=== PATIENT | female | born 1965 | race Caucasian/White ===

== ENCOUNTER 2019-12-20 15:04 | Emergency (ER) | payer OTHER ==
[2019-12-20] MEDS ORDERED: Lorazepam 2 MG/ML VIAL ONE (15:27)
[2019-12-20 15:57] LABS: #Basophils 0.1 thou/uL (0.0-0.2); #Eosinphils 0.3 thou/uL (0.0-0.7); #Lymphocytes 2.7 thou/uL (1.20-3.40); #Monocytes 0.8 thou/uL (0.11-0.59); #Neutrophils 11.1 thou/uL (1.40-6.50); %Basophils 0.9 % (0.0-1.0); %Eosinophils 2.1 % (0.0-10.0); %Lymphocytes 18.2 % (21.0-51.0); %Monocytes 5.3 % (0.0-10.0); %Neutrophils 73.5 % (42.0-75.0); Hemoglobin 15.6 g/dL (12.0-16.0); Mean Corpuscular HGB CONC 32.1 g/dL (32.0-36.0); Mean Corpuscular Hemoglobin 29.3 pg (27.0-31.0); Mean Corpuscular Volume 91.4 fL (78.0-98.0); Mean Platelet Volume 8.9 fL (7.4-10.4); Platelet Count 259 thou/uL (130-400); RBC Distribution Width 11.9 % (11.5-14.5); Red Blood Cell (RBC) Count 5.31 mill/uL (4.20-5.40)
[2019-12-20 16:13] LABS: Anion Gap 16 mmol/L (10-20); BUN (Urea Nitrogen) 12 mg/dL (9.8-20.1); Calc. Creatinine Clearance 0 mL/min (70-130); Calcium 9.5 mg/dL (7.8-10.44); Carbon Dioxide 22 mmol/L (22-29); Chloride 106 mmol/L (98-107); Estimated GFR-MDRD 63; Glucose 94 mg/dL (70-105); Potassium 3.4 mmol/L (3.5-5.1); Sodium 141 mmol/L (136-145)
[2019-12-20] MEDS ORDERED: Boostrix 0.5 ML (Tdap) VIAL ONE (16:14)
--- NOTE | 2019-12-20 16:17 | CT ---
CT Brain WO Con History: New onset seizure Comparison: None. Findings: No acute hemorrhage or infarct. No midline shift or mass effect. Ventricular size and extra -axial CSF spaces are normal. Calvarium is intact. Paranasal sinuses and mastoids are clear. Globes are intact. Impression: No acute intracranial abnormality.
[2019-12-20 16:44] LABS: Bilirubin Negative (Negative); Blood, Urine Moderate (Negative); Glucose, Urine (Dipstick) Negative (Negative); Ketone, Urine Negative (Negative); Leukocyte Negative (Negative); Nitrite Negative (Negative); Protein, Urine (Dipstick) 30 mg/dL (Neg-Trace); Urobilinogen 0.2 mg/dL (Less than 2)
[2019-12-20 16:48] LABS: Pregnancy Test - Urine (BHCG) Negative (Negative); Pregu Control Background? CLEAR/WHITE (CLR/WHITE); Pregu Control Bar Appear? YES (CONTROL BAR); Specific Gravity 1.018 (1.002-1.036)
[2019-12-20 16:49] LABS: Bacteria/HPF 1+ HPF (None Seen); Clarity Hazy (Clear); Specific Gravity, Urine 1.018 (1.002-1.036); WBC/HPF 0-3 HPF (0-3)
[2019-12-20 16:50] LABS: Amphetamine Not Detected (NotDetected); Barbiturates Screen Not Detected (NotDetected); Benzodiazepine Screen Not Detected (NotDetected); Cocaine Metabolite Screen Not Detected (NotDetected); Medtox Control Line Valid? VALID (VALID); Methadone Not Detected (NotDetected); Methamphetamine Not Detected (NotDetected); Opiate Screen Not Detected (NotDetected); Oxycodone Screen Not Detected (NotDetected); Phencyclidine (PCP) Not Detected (NotDetected); THC/Cannabinoid Screen Not Detected (NotDetected); Tricyclic Screen Not Detected (NotDetected)
== END 2019-12-20 17:46 | disposition home or self-care (01) ==
LOC: MADERS 15:04
DX: R56.9 Unspecified convulsions (principal); F31.9 Bipolar disorder, unspecified; F17.210 Nicotine dependence, cigarettes, uncomplicated
CPT/HCPCS: 36415; 70450; 80048; 80306; 81003; 81015; 81025; 85025; 90471; 90715; 96374; J2060